=== PATIENT | female | born 1975 | race Caucasian/White ===

== ENCOUNTER → 2017-04-04 | Outpatient (CLI) | payer BC ==
[~2017-04-04] MED LIST: BIRTH CONTROL; DARVOCET-N-101 UDTAB PO; DILAUDID 2MG TAB2 MG PO; FLEXERIL10 MG PO; GABAPENTIN PO; KLONOPIN 0.5MG0.5 MG PO; LAMICTAL 100MG100 MG PO; LORTAB 5/500 501 TAB PO; NAPROSYN500 MG PO; NORCO 325 MG-51 TAB PO; PERCOCET 325 MG1 TAB PO; PREMARIN0.625 MG PO; SEROQUEL 200MG200 MG PO; TYLENOL 500MG500 MG PO; VANCOCIN H250 MG/CAP PO; ZANAFLEX 4MG TAB4 MG PO; ZOFRAN 4MG T4 MG/TAB PO; [UNRECOGNIZED DRUG - OTHER]
== END ==
LOC: MC.RAD 15:08
DX: Z12.31 Encounter for screening mammogram for malignant neoplasm of breast (principal)

== ENCOUNTER 2017-10-12 09:05 | Emergency (ER) | payer BC ==
[~2017-10-12] VITALS: Ht 160 cm; Wt 61.1 kg
[2017-10-12 09:08] VITALS: BP 133/60; PULSE 63; TEMP 98
[2017-10-12] MEDS ORDERED: PREMARIN 1.251.25 MG PO (09:13)
[2017-10-12 10:06] LABS: BASO % 0.5 % (0.0-2.0); EOS % 0.7 % (0-4.0); GRAN # 4.1 (1.4-6.5); GRAN % 68.1 % (42.2-75.2); LYMPH # 1.6 (1.2-3.4); LYMPH % 26.8 % (20.0-51.0); MEAN CELL VOLUME 94 fl (80.0-100.0); MEAN CORPUSCULAR HGB CONC 33 g/dl (33.0-37.0); MEAN PLATELET VOLUME 9.3 fl (7.4-10.4); MONO # 0.2 (0.1-0.6); MONO % 3.7 % (1.7-9.3); PLATELET COUNT 301 K/mm3 (130-400); RED BLOOD COUNT 3.74 M/mm3 (4.10-5.30)
[2017-10-12 10:10] LABS: ALANINE AMINOTRANSFERASE 28 U/L (9-52); ALBUMIN 4.7 gm/dL (3.5-5.0); ALKALINE PHOSPHATASE 39 U/L (50-136); ANION GAP 10 mmol/L (7-16); AST,SGOT 22 U/L (15-37); BILIRUBIN,TOTAL 0.3 mg/dL (0.0-1.0); BLOOD UREA NITROGEN 14 mg/dL (7-17); CALCIUM 9.8 mg/dL (8.4-10.2); CARBON DIOXIDE 28 mmol/L (22-30); CHLORIDE 102 mmol/L (98-107); CREATININE, serum 0.76 mg/dL (0.52-1.25); GLUCOSE 95 mg/dL (74-106); POTASSIUM 4.6 mmol/L (3.4-5.0); SODIUM 140 mmol/L (137-145); TOTAL PROTEIN 7.5 gm/dL (6.4-8.2)
[2017-10-12 10:11] LABS: ACETAMINOPHEN < 10 ug/mL (10-30); ALCOHOL(ethanol),MEDICAL < 10 mg/dL; SALICYLATE < 1.0 mg/dL
[2017-10-12 10:12] LABS: HEMOGLOBIN 11.7 g/dl (12.5-16.0); MEAN CORPUSCULAR HEMOGLOBIN 31 pg (27.0-31.0)
[2017-10-12 10:15] LABS: COLLECTION METHOD CLEAN CATCH
[2017-10-12 10:29] LABS: MUCOUS Present /lpf; PH 5 (5-8); URINE APPEARANCE Clear; URINE BACTERIA Rare /hpf; URINE BILIRUBIN Negative (NEGATIVE); URINE BLOOD Negative (NEGATIVE); URINE COLOR Yellow; URINE GLUCOSE Negative (NEGATIVE); URINE KETONE Negative (NEGATIVE); URINE LEUKOCYTE ESTERASE Negative (NEGATIVE); URINE NITRATE Negative (NEGATIVE); URINE PROTEIN(semi-quant) Negative (NEGATIVE); URINE RBC 0-2 /hpf; URINE UROBILINOGEN Negative (NEGATIVE)
[2017-10-12 10:32] LABS: TRICYCLIC ANTIDEPRESS URINE NEGATIVE
== END 2017-10-12 12:43 | disposition home or self-care (01) ==
LOC: COL.ER 09:05
PROVIDERS: Nurse Practitioner
DX: F32.9 Major depressive disorder, single episode, unspecified (principal); R45.851 Suicidal ideations; F41.9 Anxiety disorder, unspecified; Z91.5 Personal history of self-harm; Z88.0 Allergy status to penicillin; Z88.8 Allergy status to other drugs, medicaments and biological substances

== ENCOUNTER 2018-10-13 20:25 | Emergency (ER) | payer BC ==
[~2018-10-13] VITALS: Ht 162.6 cm; Wt 56.4 kg
[~2018-10-13 20:25] MED LIST changes: +PREMARIN 1.251.25 MG PO
[2018-10-13 20:28] VITALS: TEMP 97.5
[2018-10-13] MEDS ORDERED: ESTRACE2 MG PO (20:34)
[2018-10-13] MEDS ORDERED: KLONOPIN 1MG1 MG PO (20:34)
[2018-10-13] MEDS ORDERED: PRILOTC PO (20:35)
[2018-10-13 20:44] LABS: BASO % 0.6 % (0.0-2.0); EOS # 0.1 (0.0-0.7); EOS % 0.9 % (0-4.0); GRAN # 2.9 (1.4-6.5); HEMATOCRIT 37.4 % (37.0-47.0); HEMOGLOBIN 12.6 g/dl (12.5-16.0); LYMPH # 2.1 (1.2-3.4); MEAN CELL VOLUME 93 fl (80.0-100.0); MEAN CORPUSCULAR HEMOGLOBIN 31 pg (27.0-31.0); MEAN CORPUSCULAR HGB CONC 34 g/dl (33.0-37.0); MEAN PLATELET VOLUME 9.3 fl (7.4-10.4); MONO # 0.3 (0.1-0.6); MONO % 6.3 % (1.7-9.3); PLATELET COUNT 312 K/mm3 (130-400); RED BLOOD COUNT 4.04 M/mm3 (4.10-5.30); REDCELL DISTRIBUTION WIDTH-CV 11.9 % (11.5-14.5)
[2018-10-13 20:47] LABS: PROTHROMBIN TIME 11.4 SECONDS (9.7-12.8)
[2018-10-13 20:54] LABS: ALANINE AMINOTRANSFERASE 14 U/L (9-52); ALBUMIN 4.2 gm/dL (3.5-5.0); ALKALINE PHOSPHATASE 39 U/L (50-136); ANION GAP 5 mmol/L (7-16); AST,SGOT 26 U/L (15-37); BILIRUBIN,TOTAL 0.4 mg/dL (0.0-1.0); BLOOD UREA NITROGEN 16 mg/dL (7-17); CALCIUM 9.7 mg/dL (8.4-10.2); CARBON DIOXIDE 31 mmol/L (22-30); CHLORIDE 102 mmol/L (98-107); CREATININE, serum 0.76 mg/dL (0.52-1.25); GLUCOSE 89 mg/dL (74-106); POTASSIUM 3.7 mmol/L (3.4-5.0); SODIUM 138 mmol/L (137-145); TOTAL PROTEIN 7.5 gm/dL (6.4-8.2)
[2018-10-13] MEDS ORDERED: SYNTHROID0.075 MG/T PO (20:57)
[2018-10-13] MEDS ORDERED: CATAPRES 0.1MG0.1 MG PO (20:57)
[2018-10-13] MEDS ORDERED: DESYREL 50MG50 MG PO (20:58)
[2018-10-13 21:07] LABS: TROPONIN-I < 0.012 ng/mL (0.000-0.035)
[2018-10-13 23:56] LABS: SALICYLATE 1.9 mg/dL
[2018-10-14 00:21] LABS: ACETAMINOPHEN < 10 ug/mL (10-30); ALCOHOL(ethanol),MEDICAL < 10 mg/dL; TROPONIN-I < 0.012 ng/mL (0.000-0.035)
[2018-10-14 00:49] LABS: TRICYCLIC ANTIDEPRESS URINE NEGATIVE
[2018-10-14 01:45] VITALS: BP 106/76; PULSE 65
== END 2018-10-14 02:08 | disposition home or self-care (01) ==
LOC: COL.ER 20:25
PROVIDERS: Emergency Medicine
DX: F41.9 Anxiety disorder, unspecified (principal); R07.89 Other chest pain; Z98.51 Tubal ligation status
CPT/HCPCS: J1170; J2060

== ENCOUNTER 2018-12-26 05:30 | Inpatient (IN) | payer BC ==
[~2018-12-26] VITALS: Ht 162.6 cm; Wt 56.6 kg
[2018-12-26] VITALS (11 sets, daily range): BP systolic 105–149; BP diastolic 56–87; PULSE 63–81; TEMP 97.3–98.7
[~2018-12-26 05:30] MED LIST changes: +CATAPRES 0.1MG0.1 MG PO; +DESYREL 50MG50 MG PO; +ESTRACE2 MG PO; +KLONOPIN 1MG1 MG PO; +PRILOTC PO; +SYNTHROID0.075 MG/T PO
[2018-12-26] MEDS ORDERED: KLONOPIN2 MG PO (06:46)
[2018-12-26] MEDS ORDERED: ESTRACE2 MG PO (06:46)
[2018-12-26] MEDS ORDERED: DESYREL 50MG50 MG PO (06:47)
[2018-12-26] MEDS ORDERED: PERCOCET 325 MG1 TAB PO (06:48)
[2018-12-26] MEDS ORDERED: SYNTHROID0.075 MG/T PO (06:48)
[2018-12-26] MEDS ORDERED: ZANAFLEX 4MG TAB4 MG PO (06:52)
[2018-12-26] MEDS ORDERED: PRILOSEC 20MG20 MG PO (06:53)
[2018-12-26] MEDS ORDERED: LAMICTAL200 MG PO (06:53)
--- NOTE | 2018-12-26 13:42 | NUR ---
Patient to room 322-2 post op. Report was obtained by Valentina Pacu nurse. Patient was tearful upon arrival to room. Reports elevated pain. She reports chonic nerve pain that she takes percocet TID. Home med list reviewed. I did discuss with patient ERAS protocol. She was medicated with Tylenol & toradol as scheduled. After no relief from pain & rating a 8/10-one tab roxicodone administed, she refused Ultram. She was willing to start with one tab and will given a second tab only if needed. He pain seems to be related to gas pain. I reviewed importance of chewing gum, avoiding straws & carbination. She has had clear liquids & denied nausea. Lap site x5 edges well approximated. open to air. Griffith to DD. IVF to L.hand. Scds ble. Kpad to abdomen to try & help relief some pain without increased narcotic use.
--- NOTE | 2018-12-26 17:52 | NUR ---
resting in bed, c/o pain and just doesn't feel good, also a headache, medicated with scheduled toradol 15mg slow IV and scheduled toradol, asking for something else besides liquid, provided pudding and eddie crackers
--- NOTE | 2018-12-26 18:32 | NUR ---
talking on phone and is not tearful now but states only minimal relief from toradol,
--- NOTE | 2018-12-26 19:42 | NUR ---
Bedside shift report to Kathrin RN. Patient thankful for care today. given update aware she is requiring Roxicodone for pain management. Patient has not tolerated activity well. Only dangled at the edge of the bed. Pain elevated with any movement. She has not been able to get any sleep today, she is hoping to take her HS medications and get rest tonight.
--- NOTE | 2018-12-26 20:15 | NUR ---
Patient in bed, reports pain to rt abdomen 02/18. Medicated with Oxycodone 10mg at this time. Is alert and oriented x4. Has lap sites x5, glued and without drainage. Has IVF infusing to left hand witout redness or swelling. Patient reporting a cough with sore/scratchy feeling to right, causing her a throbbing headache. Encouraged oral fluids. Has vaughn to BSD with yellow urine. HS meds given at this time as well.
--- NOTE | 2018-12-26 21:30 | NUR ---
Patient asking for something for her cough/throat, as it still feels scratchy causing the throbbing headache to continue. Given several cough drops at this time.
--- NOTE | 2018-12-27 00:30 | NUR ---
Patient refuses Tylenol, Toradol given at this time. Patient reports the cough drops helped "some" with the scratchy throat.
[2018-12-27 00:41] VITALS: BP 100/58; PULSE 69; TEMP 98.2
--- NOTE | 2018-12-27 03:30 | NUR ---
Patient asking when last pain med was given, rates pain to right lower abdomen 02/18. B/P 92/50, patient groggy from HS meds, will re-evaluate need for pain meds in an hour.
[2018-12-27 04:17] VITALS: BP 92/50; PULSE 61; TEMP 98.6
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
--- NOTE | 2018-12-27 07:11 | NUR ---
IVF capped, taking po well.
[2018-12-27 08:11] VITALS: BP 82/49; PULSE 58; TEMP 97.8
--- NOTE | 2018-12-27 09:36 | NUR ---
Patient drowsy, awakens to verbal stimuli but doses off during conversation. VS reveal hypotension. Patient requests pain medications be given, explained to patient cannot be given at this due to hypotension and drowsiness. Abdomen soft, non distended. Bowel sounds active. +Flatus. Lap sites with edges well approximated, no drainage noted. C/o abdomen pain at umbilicus lap site. No other c/o at this time.
--- NOTE | 2018-12-27 12:19 | NUR ---
First visit from the fire adjuster. No needs right now.
[2018-12-27 12:30] VITALS: BP 101/52; PULSE 75; TEMP 98
--- NOTE | 2018-12-27 13:26 | NUR ---
HAYDER kiran met with patient to discuss discharge plan. Patient lives with her in [place]. Patient's PCP is Dr. Benja Belcher and she uses the [facility]. Patient does not use any DME and is independent with ADLs. Patient does not have a DPOA-HC completed but was interested in obtaining the form. HAYDER kiran provided and explained the form. Patient plans to return home with her upon discharge. No additional needs.
--- NOTE | 2018-12-27 14:06 | NUR ---
Discharge instructions reviewed with patient and spouse, verbalized understanding. Discharged via wheelchair to auto/home with spouse at 1400.
== END 2018-12-27 14:00 | disposition home or self-care (01) | DRG 748 ==
LOC: SDCO 05:30 → SURG 11:35 → SDCO 11:36 → SURG 12-27 14:00
PROVIDERS: Urology
PROC: 8E0W4CZ Robotic Assisted Procedure of Trunk Region, Percutaneous Endoscopic Approach (ICD-10-PCS; 2018-12-26)
PROC: 0TJB8ZZ Inspection of Bladder, Via Natural or Artificial Opening Endoscopic (ICD-10-PCS; 2018-12-26)
PROC: 0USG4ZZ Reposition Vagina, Percutaneous Endoscopic Approach (ICD-10-PCS; principal; 2018-12-26 07:30)
PROC: 0UUG4JZ Supplement Vagina with Synthetic Substitute, Percutaneous Endoscopic Approach (ICD-10-PCS; 2018-12-26 07:30)
DX: N99.3 Prolapse of vaginal vault after hysterectomy (principal); F31.9 Bipolar disorder, unspecified; F41.9 Anxiety disorder, unspecified; K58.9 Irritable bowel syndrome, unspecified; R10.2 Pelvic and perineal pain; G89.29 Other chronic pain; E03.9 Hypothyroidism, unspecified
CPT/HCPCS: OP; A4314; A9284; C1781; J0690; J1100; J1885; J2405; J2704; J2710; J2765; J3010; J7120

== ENCOUNTER 2019-01-04 20:21 | Emergency (ER) | payer BC ==
[~2019-01-04] VITALS: Ht 162.6 cm; Wt 57.7 kg
[~2019-01-04 20:21] MED LIST changes: +KLONOPIN2 MG PO; +LAMICTAL200 MG PO; +PRILOSEC 20MG20 MG PO
[2019-01-04 20:24] VITALS: TEMP 97.7
[2019-01-04 23:11] VITALS: BP 123/84; PULSE 78
== END 2019-01-04 23:11 | disposition home or self-care (01) ==
LOC: COL.ER 20:21
DX: K59.00 Constipation, unspecified (principal); N99.3 Prolapse of vaginal vault after hysterectomy; Z90.710 Acquired absence of both cervix and uterus

== ENCOUNTER → 2019-04-08 | Outpatient (CLI) | payer BC, OTHER | LOC: COL.RAD 09:54 | DX: M89.9 Disorder of bone, unspecified (principal); M50.321 Other cervical disc degeneration at C4-C5 level; Z98.1 Arthrodesis status ==

== ENCOUNTER → 2019-06-03 | Outpatient (CLI) | payer BC | LOC: COL.RAD 08:09 | DX: R10.84 Generalized abdominal pain (principal) ==

== ENCOUNTER → 2019-06-07 | Outpatient (CLI) | payer BC | LOC: COL.RAD 07:52 | DX: R10.84 Generalized abdominal pain (principal); Z53.9 Procedure and treatment not carried out, unspecified reason ==

== ENCOUNTER → 2019-06-10 | Outpatient (CLI) | payer BC | LOC: COL.RAD 08:21 | DX: R10.84 Generalized abdominal pain (principal) | CPT/HCPCS: A9541 ==

== ENCOUNTER → 2019-07-23 | Outpatient (CLI) | payer BC | LOC: COL.RAD 08:05 | DX: K62.5 Hemorrhage of anus and rectum (principal); R59.0 Localized enlarged lymph nodes; Z90.49 Acquired absence of other specified parts of digestive tract; Z90.710 Acquired absence of both cervix and uterus ==

== ENCOUNTER → 2019-10-10 | Outpatient (CLI) | payer BC | LOC: MC.RAD 10:04 | DX: N63.20 Unspecified lump in the left breast, unspecified quadrant (principal) | CPT/HCPCS: G0279 ==

== ENCOUNTER 2019-10-14 06:36 | Day surgery (SDC) | payer BC ==
[~2019-10-14] VITALS: Ht 162.6 cm; Wt 60.0 kg
[2019-10-14] MEDS ORDERED: LINZESS290CAP PO (07:03)
[2019-10-14] MEDS ORDERED: PREMARIN 0.60.625 M1 PO (07:08)
[2019-10-14] MEDS ORDERED: CATAPRES 0.1MG0.1 MG PO (07:11)
[2019-10-14] MEDS ORDERED: AMITIZA 8MCG8 MCG PO (07:12)
[2019-10-14] MEDS ORDERED: ROXICODONE 55 MG/TAB PO (07:12)
[2019-10-14 07:13] VITALS: BP 98/71; PULSE 66; TEMP 97.5
[2019-10-14 08:37] VITALS: BP 106/68; PULSE 53
[2019-10-14 09:22] VITALS: BP 105/70; PULSE 52
--- NOTE | 2019-10-14 12:39 | NUR ---
PT A/OX3, LUNGS CLEAR, HRR, BOWEL SOUNDS PRESENT. PT PASSING STOOL WITH PERIODS OF INCONTINENCE. PT DENIES PAIN, NAUSEA OR VOMITING. TOLERATING SPRITE AND JELLO AND REQUESTS TOAST. PRESENT IN ROOM. WILL CONT TO MONITOR.
--- NOTE | 2019-10-14 12:42 | NUR ---
PT SPENT THE LAST 15-20 MINUTES IN THE BATHROOM PASSING STOOL. GAVE PT A DEPENDS AND WET CLEANSING CLOTHS TO HELP WITH CLEANING UP. PT STATES, 'I SHOULD BE CLEANED OUT NOW'. PT DENIES PAIN, NAUSEA OR VOMITING. WILL CONT TO MONITOR PROGRESS
--- NOTE | 2019-10-14 12:46 | NUR ---
PT CONTINUES TO TOLERATE FOOD AND FLUIDS, DENIES PAIN, DISCOMFORT OR NAUSEA/VOMITING. DISCHARGE INSTRUCTIONS GIVEN TO PT AND AND BOTH VOICE UNDERSTANDING. QUESTIONS ANSWERED AND PT WAS TAKEN TO PT ENTRANCE PER WC AND DC'D INTO FAMILY CAR.
== END 2019-10-14 09:25 | disposition home or self-care (01) ==
LOC: SDCO 06:36
DX: K92.1 Melena (principal); K64.4 Residual hemorrhoidal skin tags; K64.1 Second degree hemorrhoids; K59.00 Constipation, unspecified; K29.70 Gastritis, unspecified, without bleeding; K21.9 Gastro-esophageal reflux disease without esophagitis; Z88.0 Allergy status to penicillin; Z88.5 Allergy status to narcotic agent; Z90.710 Acquired absence of both cervix and uterus; Z90.49 Acquired absence of other specified parts of digestive tract; Z79.51 Long term (current) use of inhaled steroids; F41.9 Anxiety disorder, unspecified; F32.9 Major depressive disorder, single episode, unspecified; G89.29 Other chronic pain; E03.9 Hypothyroidism, unspecified; Z88.3 Allergy status to other anti-infective agents; Z91.040 Latex allergy status
CPT/HCPCS: J2250; J2704; J3010; J7120

== ENCOUNTER → 2019-10-25 | Outpatient (CLI) | payer BC ==
[~2019-10-25] MED LIST changes: +AMITIZA 8MCG8 MCG PO; +LINZESS290CAP PO; +PREMARIN 0.60.625 M1 PO; +ROXICODONE 55 MG/TAB PO
== END ==
LOC: ZCOL.LAB 15:45
DX: R78.9 Finding of unspecified substance, not normally found in blood (principal)

== ENCOUNTER 2020-04-22 16:41 | Emergency (ER) | payer BC ==
[~2020-04-22] VITALS: Ht 162.6 cm; Wt 55.9 kg
[2020-04-22 17:00] VITALS: BP 107/73; TEMP 98.8
== END 2020-04-22 18:20 | disposition left against medical advice (07) ==
LOC: COL.ER 16:41
DX: F32.9 Major depressive disorder, single episode, unspecified (principal); E03.9 Hypothyroidism, unspecified; F41.9 Anxiety disorder, unspecified; M79.7 Fibromyalgia; Z79.890 Hormone replacement therapy

== ENCOUNTER 2020-05-15 17:42 | Emergency (ER) | payer BC ==
[~2020-05-15] VITALS: Ht 162.6 cm; Wt 56.8 kg
[2020-05-15 17:57] VITALS: TEMP 98.6
[2020-05-15 18:38] LABS: COLLECTION METHOD CLEAN CATCH
[2020-05-15 18:40] LABS: BASO % 0.7 % (0.0-2.0); EOS % 0.9 % (0-4.0); GRAN # 2.6 (1.4-6.5); GRAN % 60.5 % (42.2-75.2); LYMPH # 1.4 (1.2-3.4); MEAN CELL VOLUME 93 fl (80.0-100.0); MEAN CORPUSCULAR HEMOGLOBIN 30 pg (27.0-31.0); MEAN CORPUSCULAR HGB CONC 32 g/dl (33.0-37.0); MEAN PLATELET VOLUME 9.3 fl (7.4-10.4); MONO # 0.3 (0.1-0.6); MONO % 6.7 % (1.7-9.3); PLATELET COUNT 307 K/mm3 (130-400); RED BLOOD COUNT 3.68 M/mm3 (4.10-5.30)
[2020-05-15 18:44] LABS: HEMATOCRIT 34.3 % (37.0-47.0)
[2020-05-15 18:57] LABS: MUCOUS Present /lpf; PH 5 (5-8); URINE APPEARANCE Hazy; URINE BACTERIA None Seen /hpf; URINE BILIRUBIN Negative (NEGATIVE); URINE BLOOD Negative (NEGATIVE); URINE COLOR Yellow; URINE GLUCOSE Negative (NEGATIVE); URINE KETONE Negative (NEGATIVE); URINE LEUKOCYTE ESTERASE Negative (NEGATIVE); URINE NITRATE Negative (NEGATIVE); URINE PROTEIN(semi-quant) Negative (NEGATIVE); URINE RBC 0-2 /hpf; URINE UROBILINOGEN Negative (NEGATIVE)
[2020-05-15 19:03] LABS: ALANINE AMINOTRANSFERASE 14 U/L (4-34); ALBUMIN 4.3 gm/dL (3.5-5.0); ALKALINE PHOSPHATASE 43 U/L (50-136); ANION GAP 6 mmol/L (7-16); AST,SGOT 27 U/L (15-37); BILIRUBIN,TOTAL 0.4 mg/dL (0.0-1.0); BLOOD UREA NITROGEN 16 mg/dL (7-17); CALCIUM 9.5 mg/dL (8.4-10.2); CARBON DIOXIDE 33 mmol/L (22-30); CHLORIDE 101 mmol/L (98-107); CREATININE, serum 0.87 (0.52-1.25); GLUCOSE 85 mg/dL (74-106); LIPASE 127 U/L (23-300); POTASSIUM 4.4 mmol/L (3.4-5.0); SODIUM 140 mmol/L (137-145); TOTAL PROTEIN 7.7 gm/dL (6.4-8.2)
[2020-05-15 19:24] LABS: TRICYCLIC ANTIDEPRESS URINE NEGATIVE
[2020-05-15 19:32] LABS: ACETAMINOPHEN < 10 ug/mL (10-30); ALCOHOL(ethanol),MEDICAL < 10 mg/dL; SALICYLATE < 1.0 mg/dL
[2020-05-15 19:33] LABS: C-REACTIVE PROTEIN < 0.5 mg/dL (0.0-0.9)
[2020-05-15 22:00] VITALS: BP 118/76; PULSE 83
== END 2020-05-15 22:02 | disposition home or self-care (01) ==
LOC: COL.ER 17:42
PROVIDERS: Emergency Medicine
DX: F12.10 Cannabis abuse, uncomplicated (principal); F15.10 Other stimulant abuse, uncomplicated; F32.9 Major depressive disorder, single episode, unspecified; Z90.49 Acquired absence of other specified parts of digestive tract; Z90.710 Acquired absence of both cervix and uterus
CPT/HCPCS: J1200; J2405; J2930; J3010; J7030; Q9967

== ENCOUNTER 2021-01-07 06:52 | Emergency (ER) | payer BC ==
[~2021-01-07] VITALS: Ht 162.6 cm; Wt 62.3 kg
[2021-01-07 07:01] VITALS: TEMP 98.2
[2021-01-07] MEDS ORDERED: HCTZ12.5TAB PO (07:08)
[2021-01-07] MEDS ORDERED: PERCOCET 325 MG1 TAB PO (07:09)
[2021-01-07] MEDS ORDERED: DOXYCYCLINE 10100 MG PO (07:41)
[2021-01-07 07:57] VITALS: BP 110/84; PULSE 67
== END 2021-01-07 08:15 | disposition home or self-care (01) ==
LOC: COL.ER 06:52
DX: S61.432A Puncture wound without foreign body of left hand, initial encounter (principal); Z88.0 Allergy status to penicillin; Z88.5 Allergy status to narcotic agent; Z91.040 Latex allergy status; Z91.041 Radiographic dye allergy status; Z79.890 Hormone replacement therapy; X58.XXXA Exposure to other specified factors, initial encounter

== ENCOUNTER 2021-03-16 06:03 | Emergency (ER) | payer BC ==
[~2021-03-16] VITALS: Ht 162.6 cm; Wt 63.6 kg
[~2021-03-16 06:03] MED LIST changes: +DOXYCYCLINE 10100 MG PO; +HCTZ12.5TAB PO
[2021-03-16 06:35] VITALS: TEMP 98
[2021-03-16 07:49] LABS: BASO % 0.5 % (0.0-2.0); EOS # 0.1 (0.0-0.7); EOS % 2.2 % (0-4.0); GRAN # 1.6 (1.4-6.5); GRAN % 41.8 % (42.2-75.2); HEMOGLOBIN 11.4 g/dl (12.5-16.0); LYMPH # 1.7 (1.2-3.4); MEAN CELL VOLUME 92 fl (80.0-100.0); MEAN CORPUSCULAR HEMOGLOBIN 30 pg (27.0-31.0); MEAN CORPUSCULAR HGB CONC 33 g/dl (33.0-37.0); MEAN PLATELET VOLUME 9.1 fl (7.4-10.4); MONO # 0.4 (0.1-0.6); MONO % 10.2 % (1.7-9.3); PLATELET COUNT 287 K/mm3 (130-400); RED BLOOD COUNT 3.75 M/mm3 (4.10-5.30); REDCELL DISTRIBUTION WIDTH-CV 12.5 % (11.5-14.5)
[2021-03-16 07:50] LABS: COLLECTION METHOD CLEAN CATCH
[2021-03-16 07:52] LABS: HEMATOCRIT 34.5 % (37.0-47.0)
[2021-03-16 07:59] LABS: BILIRUBIN,TOTAL 0.1 mg/dL (0.0-1.0); CALCIUM 9.5 mg/dL (8.4-10.2); CREATININE, serum 0.9 (0.52-1.25); POTASSIUM 3.9 mmol/L (3.4-5.0); TOTAL PROTEIN 7.4 gm/dL (6.4-8.2)
[2021-03-16 07:59] LABS: MUCOUS Present /lpf; PH 5 (5-8); URINE APPEARANCE Clear; URINE BACTERIA None Seen /hpf; URINE BILIRUBIN Negative (NEGATIVE); URINE BLOOD 1+ (NEGATIVE); URINE COLOR Yellow; URINE GLUCOSE Negative (NEGATIVE); URINE KETONE Negative (NEGATIVE); URINE LEUKOCYTE ESTERASE Negative (NEGATIVE); URINE NITRATE Negative (NEGATIVE); URINE PROTEIN(semi-quant) Negative (NEGATIVE); URINE RBC 0-2 /hpf; URINE UROBILINOGEN Negative (NEGATIVE)
[2021-03-16 08:29] LABS: TSH w REFLEX 2.78 uIU/mL (0.465-4.680)
[2021-03-16 09:30] VITALS: BP 98/64; PULSE 53
== END 2021-03-16 09:30 | disposition home or self-care (01) ==
LOC: COL.ER 06:03
PROVIDERS: Emergency Medicine
DX: R53.81 Other malaise (principal); R53.83 Other fatigue; E16.2 Hypoglycemia, unspecified; D72.819 Decreased white blood cell count, unspecified; D64.9 Anemia, unspecified; Z20.822 Contact with and (suspected) exposure to COVID-19; Z88.0 Allergy status to penicillin; Z88.1 Allergy status to other antibiotic agents; Z88.6 Allergy status to analgesic agent
CPT/HCPCS: J0780; J1885; J7120

== ENCOUNTER → 2021-05-12 | Outpatient (CLI) | payer BC | LOC: MC.RAD 11:12 | DX: Z12.31 Encounter for screening mammogram for malignant neoplasm of breast (principal) ==

== ENCOUNTER → 2021-05-26 | Outpatient (CLI) | payer BC | LOC: COL.RAD 05-14 13:30 | DX: M25.861 Other specified joint disorders, right knee (principal) ==

== ENCOUNTER → 2021-07-19 | Outpatient (CLI) | payer BC, OTHER | LOC: COL.VAS 09:21 | DX: M71.21 Synovial cyst of popliteal space [Baker], right knee (principal) ==

== ENCOUNTER → 2021-11-26 | Outpatient (CLI) | payer BC | LOC: COL.RAD 11-18 14:00 | DX: M71.21 Synovial cyst of popliteal space [Baker], right knee (principal) ==

== ENCOUNTER → 2022-01-21 | Outpatient (CLI) | payer BC | LOC: COL.CARD 12:30 | DX: R55 Syncope and collapse (principal); R40.0 Somnolence ==

== ENCOUNTER 2022-12-13 07:57 | Emergency (ER) | payer BC ==
[~2022-12-13] VITALS: Ht 162.6 cm; Wt 53.6 kg
[2022-12-13 08:07] VITALS: BP 160/110; PULSE 87; TEMP 98.6
== END 2022-12-13 09:31 | disposition left against medical advice (07) ==
LOC: COL.ER 07:57
DX: F41.9 Anxiety disorder, unspecified (principal); F32.A Depression, unspecified

== ENCOUNTER 2023-01-19 09:01 | Emergency (ER) | payer BC ==
[~2023-01-19] VITALS: Ht 162.6 cm; Wt 56.4 kg
[2023-01-19 09:09] VITALS: TEMP 97.4
[2023-01-19 10:05] VITALS: BP 115/78; PULSE 70
== END 2023-01-19 10:06 | disposition home or self-care (01) ==
LOC: COL.ER 09:01
DX: M25.531 Pain in right wrist (principal); Z98.890 Other specified postprocedural states; Z91.040 Latex allergy status; Z28.310 Unvaccinated for COVID-19; Y04.0XXA Assault by unarmed brawl or fight, initial encounter

== ENCOUNTER 2023-11-24 05:42 | Day surgery (SDC) | payer BC ==
[~2023-11-24] VITALS: Ht 162.6 cm; Wt 52.0 kg
[2023-11-24] VITALS (7 sets, daily range): BP systolic 104–147; BP diastolic 68–91; PULSE 66–74; TEMP 97.3–97.7
[~2023-11-24 05:42] MED LIST changes: +DESYREL 100MG100 MG PO; +LR 1,000 ML IV SCH; +Ondansetron 4 MG/2 ML VIAL IV PRN
[2023-11-24] MEDS ORDERED: MENEST1.25 MG PO (06:06)
[2023-11-24] MEDS ORDERED: PROTONIX 40MG T40 MG PO (06:09)
[2023-11-24] MEDS ORDERED: CYANOCOBAL1000 MCG/1 IM (06:10)
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
[2023-11-24] MEDS ORDERED: Lidocaine PF 2% (20 MG/ML) 5 ML VIAL ONE (07:46)
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
--- NOTE | 2023-11-24 09:02 | NUR ---
PATIENT AMBULATED TO CHAIR (IN BAY 3) WITH STEADY GAIT, STANDBY ASSIST. ALERT AND AWAKE. DENIES PAIN, NAUSEA AND SHORTNESS OF BREATH. PATIENT AGAIN HAD VANILLA PUDDING AND AMANDA CRACKERS. SEE CHART FOR VITAL SIGNS. CALL LIGHT IN REACH. SPOUSE, FRANCINE, PRESENT IN ROOM.
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
--- NOTE | 2023-11-24 09:48 | NUR ---
0934: DISCHARGE TEACHING COMPLETED WITH PRINTED EDUCATION AND INSTRUCTIONS SENT HOME WITH PATIENT. PATIENT VERBALIZED UNDERSTANDING OF TEACHING. 0941: IV REMOVED. GAUZE AND COBAN PLACED OVER SITE. 0948: PATIENT DISCHARGED HOME WITH FRANCINE TRANSPORT.
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
== END 2023-11-24 09:48 | disposition home or self-care (01) ==
LOC: SDCO 05:42
DX: K29.50 Unspecified chronic gastritis without bleeding (principal); K21.9 Gastro-esophageal reflux disease without esophagitis; K92.0 Hematemesis; K92.1 Melena; R63.4 Abnormal weight loss; Z79.899 Other long term (current) drug therapy
CPT/HCPCS: J2704; J7120